=== PATIENT | male | born 1955 | race Caucasian/White ===

== ENCOUNTER → 2025-01-28 07:55 | Outpatient (REF) | payer MEDICARE, SELFPAY | LOC: HWRCS 07:55 | PROVIDERS: ATTENDING PHYSICIAN Internal Medicine Cardiovascular Disease; FAMILY PHYSICIAN Physician Assistant | DX: I42.9 Cardiomyopathy, unspecified (principal) | CPT/HCPCS: 93306 ==

== ENCOUNTER 2025-10-14 13:10 | Emergency (ER) | payer MEDICARE, SELFPAY ==
[2025-10-14 13:15] VITALS: BP 182/93
--- NOTE | 2025-10-14 16:04 | ED.GENMED ---
History of Present Illness
General
Chief Complaint: Male Genito-Urinary Symptoms
Source: patient
Exam Limitations: none
Time Seen by Provider: 10/14/25 15:47
Nursing documentation reviewed up to this point in time: agreed with
History of Present Illness
History of Present Illness:
Patient with history of BPH, currently on Flomax and finasteride, presents to ED secondary to difficulty with urination upon waking up this morning, after he had couple of alcoholic beverages last night. Denies abdominal pain. Denies nausea or
vomiting. Denies trauma. Denies fever or chills. Patient states that he had 1 similar episode 4 years ago, requiring Heredia catheter placement. Since then, he has not had any recurrent episode.
Past History
Past History
ED Past Medical History: Arrthythmia, Hypercholesterolemia and NIDDM
ED Past Surgical History: Other (hernia repair)
Social History
Tobacco: Non-smoker
Alcohol: Occasional
Personal:
Living: with family
Employment: Employed (Sales)
Review of Systems
Review of Systems
Allergies reviewed?: Yes
All Other Systems: ROS reviewed and negative except as documented in HPI and ROS
Constitutional: Reports no symptoms; Denies fever
ABD/GI: Reports no symptoms; Denies abdominal pain, vomiting or diarrhea
: Reports difficulty voiding
Musculoskeletal: Reports no symptoms
Skin: Reports no symptoms
Neurological: Reports no symptoms
Phy Exam
Physical Exam
Physical Exam:
Physical Exam
General: mild distress, not acutely ill. afebrile
Head: nc/at. eomi
Neck: supple. normal range of motion
Abdomen: normal bowel sounds. not tender.
Neuro: alert and oriented x 3. no focal neurological deficits
Skin: no rash
Psychiatric: well kept. interactive and cooperative
Extremities: no edema. no calf tenderness.
Course
Orders/Labs/Results
Orders:
Orders
10/14/25 15:54
Bladder Scan- Treatment ONCE
Heredia Placement- Treatment ONCE
Reason for insertion: Acute Retention
10/14/25 16:14
Urinalysis Reflex To Culture Urgent
Date Specimen was Collected: 10/14/25
Time Specimen was Collected: 16:08
Urine Microscopic Reflex Cult Urgent
Urine Culture Urgent
CHARLIE Source: U
Specimen Description:
Date Specimen was Collected: 10/14/25
Time Specimen was Collected: 16:08
Abnormal Lab Results
10/14/25
16:14
Ur Occult Blood Reflex 2+ A
(Negative)
Urine Nitrite (Reflex) Positive A
(Negative)
Urine Bilirubin 2+ A
(Negative)
Urine Urobilinogen 2+ A
(Neg - 1+)
Urine RBC 7-10 A /HPF
(0-2)
Urine Bacteria (Reflex) Few A
(Negative)
Urine Albumin (Reflex) 2+ A
(Neg - Trace)
Vital Signs
Initial and Last Documented VS:
Initial Vital Signs
Temp Pulse Resp BP Pulse Ox
98.1 F 78 20 182/93 98
10/14/25 13:15 10/14/25 13:15 10/14/25 13:15 10/14/25 13:15 10/14/25 13:15
Last Documented Vital Signs
Temp Pulse Resp BP Pulse Ox
98.1 F 74 18 144/70 99
10/14/25 13:15 10/14/25 18:00 10/14/25 18:00 10/14/25 18:00 10/14/25 18:00
MDM/Problems Addressed
MDM/Problems Addressed:
Bladder scan reveals greater than 850 mL urine. Heredia catheter inserted, with improvement in symptoms. Urinalysis noted, inconsistent with UTI.
As patient is on Eliquis, expected blood-tinged urine noted after catheter insertion, but flowing continuously without any blood clots noted. Catheter manually irrigated by nursing staff, without removal of any large blood clots. As such, decision
made to discharge patient home, with return precautions given, i.e. fever/pain/malfunction of the catheter
Urine culture pending. Patient will be referred to urology for an outpatient follow-up. Patient otherwise is afebrile, hemodynamically stable, and appears comfortable, at time of discharge, to the care of his .
*Pulse Oximetry
SaO2: 98
Oxygen Mode of Delivery: Room air
Patient hypoxic: no
*Critical Care Note
Total Time (30-74mins, 75-104mins- exclusive of procedures): Not Applicable
ED Attending Note
-
Portions of this chart may have been created with voice recognition software.� Occasional wrong word or��sound alike� substitutions may have occurred due to the inherent limitations of voice recognition software.
Discharge Plan
Departure
Patient Disposition: Home (Routine Discharge)
Date of Disposition: 10/14/25
Time of Disposition: 17:10
Patient with high blood pressure during this ER visit?: Yes
Condition: Fair
Discharge Problem:
Acute urinary retention
Instructions: How to Care for Your Heredia Catheter, Male, Urinary Retention (DC)
Prescriptions:
No Action
dabigatran etexilate [Pradaxa] 150 MG capsule
150 mg PO BID
rosuvastatin 10 MG tablet
10 mg PO QPM Qty: 0 0RF
metoprolol succinate 50 MG tablet extended release 24 hr
50 mg PO BID
hydrocodone-acetaminophen 1 TABLET tablet
1 tab PO Q4HPRN PRN (Reason: breakthrough pain) Qty: 10 0RF
tamsulosin 0.4 MG capsule
0.8 mg PO DAILY Qty: 60 0RF
Rx Instructions:
Take two 0.4mg tab for 0.8mg dose
finasteride 5 MG tablet
5 mg PO DAILY Qty: 30 0RF
insulin aspart U-100 [Novolog FlexPen U-100 Insulin] 300 UNITS/3 ML insulin pen
5 units SC AC Qty: 5 0RF
insulin glargine [Lantus Solostar U-100 Insulin] 300 UNITS/3 ML insulin pen
24 units SC HS 0RF
Rx Instructions:
Note increased dose
Referrals:
Mark Gomez MD [Active, Urology]
UNKNOWN - PT DOES,NOT KNOW [Family Provider]
Activity Restrictions/Additional Instructions:
As discussed, please follow-up with referred urologist for further evaluation and treatment.
Interventions
Interventions:
*Risk Screen - Suicide Last Done: 10/14/25 13:15
*General Assessment Last Done: 10/14/25 13:15
*Neglect/Abuse Screening Last Done: 10/14/25 13:15
*Nursing Disposition Last Done: 10/14/25 18:00
ED-Male Genitourinary Assessment Last Done: 10/14/25 15:51
Discharge Date and Time
Discharge Date/Time: 10/14/25 18:08
Print Language: KOREAN
[2025-10-14 16:45] LABS: Urine Character Clear (Clear)
[2025-10-14 17:04] LABS: Urine Squamous Cell 0-2 /LPF (Few)
[2025-10-14 17:05] LABS: Urine White Cell 0-2 /HPF (0-5)
[2025-10-14 18:00] VITALS: BP 144/70
== END 2025-10-14 18:08 | disposition home or self-care (01) ==
LOC: EMR 13:10
PROVIDERS: EMERGENCY PHYSICIAN Emergency Medicine
DX: R33.9 Retention of urine, unspecified (principal); N40.1 Benign prostatic hyperplasia with lower urinary tract symptoms; E78.00 Pure hypercholesterolemia, unspecified; E11.9 Type 2 diabetes mellitus without complications; Z79.01 Long term (current) use of anticoagulants
CPT/HCPCS: 99282; 81003; 81015; 87086

== ENCOUNTER 2025-10-15 13:27 | Emergency (ER) | payer MEDICARE, SELFPAY ==
[2025-10-15 13:33] VITALS: BP 138/83
--- NOTE | 2025-10-15 13:59 | ED.GENMED ---
History of Present Illness
<Aleksandra Michele PA-C - Last Filed: 10/15/25 20:46>
General
Chief Complaint: Male Genito-Urinary Symptoms
Source: patient and records
Exam Limitations: none
Time Seen by Provider: 10/15/25 13:42
History of Present Illness
History of Present Illness:
70yoM with a history of atrial fibrillation on Eliquis, insulin-dependent diabetes, hyperlipidemia, and BPH on tamsulosin and finasteride presenting for evaluation of hematuria. He was seen in the ED yesterday for urinary retention. Heredia catheter
was placed at that time. Urine was blood-tinged after catheter insertion. Manual irrigation was performed without any significant clots and he was discharged. Patient is here with persistent hematuria. He states the blood has not lessened at all
and he wanted to make sure everything was okay. He denies any significant clots when he emptied the catheter last. He is otherwise feeling well and denies any abdominal pain, vomiting, flank pain, fevers, chills. Urine culture from yesterday came
back with no growth. Patient had a CT abdomen in 2016 which showed markedly enlarged prostate gland causing mass effect on the base of the bladder.
Past History
<Aleksandra Michele PA-C - Last Filed: 10/15/25 20:46>
Past History
ED Past Medical History: Arrthythmia, Hypercholesterolemia and NIDDM
ED Past Surgical History: Other (hernia repair)
Social History
Tobacco: Non-smoker
Alcohol: Occasional
Personal:
Living: with family
Employment: Employed (Sales)
Phy Exam
<Aleksandra Michele PA-C - Last Filed: 10/15/25 20:46>
General Physical Exam
General Presentation: well appearing and no apparent distress
General Skin: warm and dry
General Habitus: normal and elderly
General Mental: alert
ENT Exam
ENT Exam: normocephalic
Pulmonary Exam
Pulmonary Exam: no respiratory distress
Gastrointestinal Exam
Gastrointestinal Exam: non tender, soft and non distended
Genitourinary Exam Male
Exam Male: other (Heredia catheter in place. Dark red urine in leg bag.)
Neurological Exam
Neurological Exam: alert
[place] Coma Scale
Eye Opening: Spontaneous
Verbal Response: Oriented
Motor Response: Obeys Commands
GCS Total Score: 15
Skin Exam
Skin Exam: normal color and warm/dry
Psychiatric Exam
Psychiatric Exam: normal mood/affect
Course
<Aleksandra Michele PA-C - Last Filed: 10/15/25 20:46>
Orders/Labs/Results
Orders:
Orders
10/15/25 13:[address] Non Medication Order As Directed
Physician Order: manual catheter irrigation
Above order entered?: Yes
10/15/25 14:21
Complete Blood Count/With Diff Urgent
Comprehensive Metabolic Panel Urgent
10/15/25 15:58
Lidocaine 2% [Lidocaine Uro-Jet 2%] [address]
10/15/25 16:50
Heredia Placement- Treatment ONCE
Reason for insertion: Acute Retention
10/15/25 18:18
CefTRIAXone [Rocephin] 1,000 mg IV NOW STA
Abnormal Lab Results
10/15/25
14:21
RBC 4.64 L 10^6/uL
(4.70-6.10)
MCHC 32.8 L g/dL
(33.0-37.0)
Absolute Monos (auto) 1.0 H 10^3/uL
(0.1-0.6)
Monocytes % 10.5 H %
(1.7-9.3)
Creatinine 0.6 L mg/dL
(0.7-1.3)
Glucose 129 H mg/dl
(70-99)
Total Bilirubin 1.9 H mg/dl
(0.2-1.3)
AST 14 L U/L
(17-59)
10/15/25 14:21
10/15/25 14:21
Vital Signs
Initial and Last Documented VS:
Initial Vital Signs
Temp Pulse Resp BP Pulse Ox
98.1 F 71 20 138/83 97
10/15/25 13:33 10/15/25 13:33 10/15/25 13:33 10/15/25 13:33 10/15/25 13:33
Last Documented Vital Signs
Temp Pulse Resp BP Pulse Ox
98.1 F 66 18 133/63 96
10/15/25 13:33 10/15/25 19:22 10/15/25 19:22 10/15/25 19:19 10/15/25 19:20
<Andreas Lomax, DO - Last Filed: 10/15/25 14:30>
Orders/Labs/Results
Orders:
Orders
10/15/25 13:[address] Non Medication Order As Directed
Physician Order: manual catheter irrigation
Above order entered?: Yes
10/15/25 14:21
Complete Blood Count/With Diff Urgent
Comprehensive Metabolic Panel Urgent
10/15/25 15:58
Lidocaine 2% [Lidocaine Uro-Jet 2%] 1 syringe .ROUTE .[facility]
10/15/25 16:50
Heredia Placement- Treatment ONCE
Reason for insertion: Acute Retention
10/15/25 18:18
CefTRIAXone [Rocephin] 1,000 mg IV NOW STA
Abnormal Lab Results
10/15/25
14:21
RBC 4.64 L 10^6/uL
(4.70-6.10)
MCHC 32.8 L g/dL
(33.0-37.0)
Absolute Monos (auto) 1.0 H 10^3/uL
(0.1-0.6)
Monocytes % 10.5 H %
(1.7-9.3)
Creatinine 0.6 L mg/dL
(0.7-1.3)
Glucose 129 H mg/dl
(70-99)
Total Bilirubin 1.9 H mg/dl
(0.2-1.3)
AST 14 L U/L
(17-59)
10/15/25 14:21
10/15/25 14:21
Vital Signs
Initial and Last Documented VS:
Initial Vital Signs
Temp Pulse Resp BP Pulse Ox
98.1 F 71 20 138/83 97
10/15/25 13:33 10/15/25 13:33 10/15/25 13:33 10/15/25 13:33 10/15/25 13:33
Last Documented Vital Signs
Temp Pulse Resp BP Pulse Ox
98.1 F 66 18 133/63 96
10/15/25 13:33 10/15/25 19:22 10/15/25 19:22 10/15/25 19:19 10/15/25 19:20
<Aleksandra Michele PA-C - Last Filed: 10/15/25 20:46>
MDM/Problems Addressed
Differential Diagnosis Includes:
70yoM here with hematuria. Heredia catheter placed in ED yesterday for retention. Hx of BPH. On Eliquis. Dark red urine noted in leg bag. He denies pain and abdominal exam is benign. Suspect hematuria is from trauma to prostate from Heredia insertion
and is being exacerbated by the Eliquis.
Initial ED plan: Check CBC and CMP. Will have nursing staff manually irrigate catheter and reassess.
<Aleksandra Michele PA-C - Last Filed: 10/15/25 20:46>
*Pulse Oximetry
SaO2: 97
Oxygen Mode of Delivery: Room air
Patient hypoxic: no
*Critical Care Note
Total Time (30-74mins, 75-104mins- exclusive of procedures): Not Applicable
<Aleksandra Michele PA-C - Last Filed: 10/15/25 20:46>
Update Note
Update Note:
Labs unremarkable including normal hemoglobin and renal function. Catheter was flushed without resistance per nursing staff. No significant clots noted. Discussed with Dr. Gomez. Patient currently has a [address] Urology wants this
exchanged to a 22 Fr 3-way catheter and CBI x 30-60 minutes.
Catheter ultimately exchanged by nursing staff and 2 bags of CBI completed. Hematuria is persistent but does appear significantly improved from arrival. Dose of IV ceftriaxone given for infection prophylaxis. Patient may be discharged since
catheter is flowing well. Urology recommending that Eliquis be held x 48-72 hours. Recommendations discussed with patient and family. Patient will call the urology office on Friday for f/u. ED return precautions reviewed and he was discharged in
stable condition.
ED Attending Note
<Aleksandra Michele PA-C - Last Filed: 10/15/25 20:46>
-
Portions of this chart may have been created with voice recognition software.� Occasional wrong word or��sound alike� substitutions may have occurred due to the inherent limitations of voice recognition software.
<Andreas Lomax DO - Last Filed: 10/15/25 14:30>
ED Attending Note
Patient seen and examined by attending physician: Yes
I performed the substantive portion of visit, reviewed & personally made and approve the management plan that is documented in note by myself or DALJIT.: Yes
Discharge Plan
Departure
Patient Disposition: Home (Routine Discharge)
Date of Disposition: 10/15/25
Time of Disposition: 18:20
Patient with high blood pressure during this ER visit?: No
Discharge Problem:
Hematuria
Instructions: Blood in the Urine (Hematuria), Adult (DC)
Prescriptions:
No Action
dabigatran etexilate [Pradaxa] 150 MG capsule
150 mg PO BID
rosuvastatin 10 MG tablet
10 mg PO QPM Qty: 0 0RF
metoprolol succinate 50 MG tablet extended release 24 hr
50 mg PO BID
hydrocodone-acetaminophen 1 TABLET tablet
1 tab PO Q4HPRN PRN (Reason: breakthrough pain) Qty: 10 0RF
tamsulosin 0.4 MG capsule
0.8 mg PO DAILY Qty: 60 0RF
Rx Instructions:
Take two 0.4mg tab for 0.8mg dose
finasteride 5 MG tablet
5 mg PO DAILY Qty: 30 0RF
insulin aspart U-100 [Novolog FlexPen U-100 Insulin] 300 UNITS/3 ML insulin pen
5 units SC AC Qty: 5 0RF
insulin glargine [Lantus Solostar U-100 Insulin] 300 UNITS/3 ML insulin pen
24 units SC HS 0RF
Rx Instructions:
Note increased dose
Referrals:
Zi Young MD [Family Provider, Family Practice]
Mark Gomez MD [Active, Urology]
Activity Restrictions/Additional Instructions:
Do not take your Eliquis for the next 48 hours.
Please call the urology office on Friday to schedule a follow-up appointment. Return to the ER with any worsening symptoms or if your catheter stops draining.
Interventions
Interventions:
*Risk Screen - Suicide Last Done: 10/15/25 14:43
*General Assessment Last Done: 10/15/25 13:33
*Neglect/Abuse Screening Last Done: 10/15/25 14:43
*ED- Fall Risk Assessment Last Done: 10/15/25 14:34
*ED COVID-19 Vaccine History Last Done: 10/15/25 14:34
*ED Influenza Vaccine History Last Done: 10/15/25 14:34
*Nursing Disposition Last Done: 10/15/25 19:57
ED-Male Genitourinary Assessment Last Done: 10/15/25 14:35
Discharge Date and Time
Discharge Date/Time: 10/15/25 19:57
Print Language: BENGAL[place]
[2025-10-15 14:36] LABS: Hematocrit 41.8 % (39.0-52.0); Hemoglobin 13.7 g/dL (13.0-18.0); Mean Corp Hgb Conc. 32.8 g/dL (33.0-37.0); Mean Corpuscular Volume 90.1 fL (80.0-94.0); Nucleated Red Blood Cells % 0 % (-); Red Cell Dist. Width 13.6 % (11.5-14.5)
[2025-10-15 14:45] LABS: ALT (SGPT) 16 U/L (0-50); AST (SGOT) 14 U/L (17-59); Albumin 4.2 g/dl (3.5-5.0); Alkaline Phosphatase 47 U/L (38-126); Blood Urea Nitrogen 11 mg/dl (9-20); Calcium 9.2 mg/dl (8.4-10.2); Carbon Dioxide 24 mmol/L (22-30); Chloride 107 mmol/L (98-107); Glucose 129 mg/dl (70-99); Potassium 4.0 mmol/L (3.5-5.1); Sodium 135 mmol/L (135-145); Total Protein 7.0 g/dl (6.3-8.2); eGFR > 60.00
[2025-10-15 14:47] LABS: Platelet Count 134 10^3/uL (130-400)
[2025-10-15] MEDS: ROCEPHIN 1000 MG IV (19:16)
[2025-10-15 19:19] VITALS: BP 133/63
== END 2025-10-15 19:57 | disposition home or self-care (01) ==
LOC: EMR 13:27
PROVIDERS: Physician Assistant; EMERGENCY PHYSICIAN Emergency Medicine; FAMILY PHYSICIAN Family Medicine
DX: R31.9 Hematuria, unspecified (principal); E11.9 Type 2 diabetes mellitus without complications; E78.00 Pure hypercholesterolemia, unspecified; I48.91 Unspecified atrial fibrillation; N40.1 Benign prostatic hyperplasia with lower urinary tract symptoms; Z46.6 Encounter for fitting and adjustment of urinary device; Z79.01 Long term (current) use of anticoagulants; Z79.4 Long term (current) use of insulin
CPT/HCPCS: 99283; 51702; 80053; 85025